=== PATIENT | male | born 2000 | race Hispanic/Latino ===

== ENCOUNTER → 2025-03-23 | Outpatient (CLI) | payer OTHER ==
--- NOTE | 2025-03-24 07:33 | HMCIMG ---
EXAM: CT chest without contrast CLINICAL HISTORY: TB screening. TECHNIQUE: Thin collimated axial CT images of the chest were obtained with sagittal and coronal reformatted images also submitted. CT scan done according to ALARA (As Low as Reasonably Achievable). CONTRAST USED: None. COMPARISON: None. FINDINGS: The lungs are clear. No pulmonary nodules. No pleural effusions. No pericardial effusion. The heart size is within normal limits. Coronary vessels and intrathoracic aorta are grossly normal. No significant axillary, supraclavicular, or mediastinal lymphadenopathy. No focal thyroid abnormality. Limited views of the upper abdomen demonstrate no abnormality. No acute or suspicious osseous abnormality. Mild degenerative osseous changes. IMPRESSION: 1. No acute cardiopulmonary abnormality. No evidence of pulmonary tuberculosis. 2. No evidence of mediastinal, hilar or axillary lymphadenopathy. No pulmonary nodules. /[place]
== END | disposition home or self-care (01) ==
LOC: RAH 10:08 → EEVIPCON 10:30
PROVIDERS: ATTEND Family Medicine
DX: Z11.1 Encounter for screening for respiratory tuberculosis (principal); M47.814 Spondylosis without myelopathy or radiculopathy, thoracic region
CPT/HCPCS: 71250